=== PATIENT | female | born 1935 | race Caucasian/White ===

== ENCOUNTER 2017-08-17 11:42 | Emergency (ER) | payer MEDICARE, OTHER ==
[2017-08-17 12:38] LABS: eGFR (African) > 60; eGFR (Non-African) > 60
--- NOTE | 2017-08-17 12:55 | ED Physician Documentation ---
General Adult - HISTORIAN Historian: patient, spouse - HPI Stated Complaint: abd pain Chief Complaint: General Adult Onset: hours Timing: still present Severity: moderate Further Comments: yes (Pt is an 82 yo female with abd pain that started this am. Pt is concerned because she has hx Crohn's dz and hx bowel obstruction, which resolved w/o surgery. Pain occurred this am in upper abd, but now has migrated to lower abd and is not as intense as previously. Pt rates pain 5/10. No n/v. No fever. Pt has had appendectomy. Pt has not had a cholecystectomy. Pt was able to eat breakfast and had normal BM this am, she says.) - ROS CONST: no problems EYES/ENT: none CVS/RESP: none GI/: abdominal pain - PAST HX Past History: other (Crohns, HTN, HLD, bowel obstruction) Allergies/Adverse Reactions: Allergies Allergy/AdvReac Type Severity Reaction Status Date / Time No Known Allergies Allergy Verified 11/20/14 16:56 Home Medications: Ambulatory Orders Medication Instructions Recorded Aspirin 81 mg PO DAILY u2 07/07/12 Cranberry Xt/Multivitamin [Utymax 1 packet PO D 12/19/13 Powder Pack] Lovastatin 40 mg PO DAILY u2 10/01/14 Ondansetron HCl Rapdis [Zofran Odt] 4 mg PO Q8 PRN #15 tab 11/16/14 Azathioprine 50 mg PO QDAY 11/18/14 Aspirin [Gita] 81 mg PO DAILY 08/17/17 Cholecalciferol (Vitamin D3) 1,000 unit PO D 08/17/17 [Vitamin D3] Loratadine [Claritin] 10 mg PO D 08/17/17 Lovastatin [Altoprev] 40 mg PO HS 08/17/17 Mesalamine [Apriso] 0.375 gm PO TID 08/17/17 [place]-3/Dha/Epa/Fish Oil [[place] 3 2 each PO D 08/17/17 500 Softgel] Sotalol HCl [Sotalol] 80 mg PO BID 08/17/17 Ubidecarenone/Vit E Acet [Co Q-10 2 each PO D 08/17/17 100 mg Softgel] - SOCIAL HX Smoking History: other (unk) - FAMILY HX Family History: No - VITAL SIGNS Vital Signs: Vital Signs Temp Pulse Resp BP Pulse Ox 97.4 F L 64 16 165/79 97 08/17/17 11:45 08/17/17 11:45 08/17/17 11:45 08/17/17 11:45 08/17/17 11:45 - REVIEWED ASSESSMENTS Nursing Assessment Reviewed: Yes Vitals Reviewed: Yes Progress - Progress Progress: NS 500 cc IVF abd x-ray: Impression: Large bowel stool. No obstruction. Sx resolved after IVF, ? constipation. ED Results Lab/Radiology - Lab Results Lab Results: Lab Results 08/17/17 08/17/17 12:10 12:10 Sodium 135 mmol/L L mmol/L (136-145) Potassium 4.1 mmol/L mmol/L (3.5-5.1) Chloride 99 mmol/L mmol/L (98-107) Carbon Dioxide 28 mmol/L mmol/L (22-30) BUN 17 mg/dL mg/dL (7-17) Creatinine 0.90 mg/dL mg/dL (0.52-1.04) Estimated Creat Clear 61 Est GFR ( Amer) > 60 (60 - ) Est GFR (Non-Af Amer) > 60 (60 - ) Glucose 111 mg/dL H mg/dL (74-106) Calcium 9.6 mg/dL mg/dL (8.4-10.2) Total Bilirubin 0.2 mg/dL mg/dL (0.2-1.3) AST 26 U/L U/L (15-46) ALT 31 U/L U/L (13-69) Alkaline Phosphatase 70 U/L U/L (38-126) Total Protein 7.2 g/dL g/dL (6.3-8.2) Albumin 4.4 g/dL g/dL (3.5-5.0) Lipase 113 U/L U/L (23-300) - Orders Orders: ED Orders Category Date Time Status ABDOMEN 1VIEW [RAD] Stat Exams 08/17/17 Ordered CBC REF Routine Lab 08/17/17 12:10 Received CMP Routine Lab 08/17/17 12:10 Completed LIPASE Stat Lab 08/17/17 12:10 Completed UA [URINALYSIS] Routine Lab 08/17/17 Ordered General Adult Physical Exam - PHYSICAL EXAM GENERAL APPEARANCE: mild distress EENT: pharynx normal NECK: normal inspection, supple RESPIRATORY: no resp distress, chest non-tender, breath sounds normal CVS: reg rate & rhythm, heart sounds normal ABDOMEN: soft, tenderness (mild diffuse lower abd tenderness), decreased BS BACK: normal inspection, no CVA tenderness SKIN: warm/dry, normal color EXTREMITIES: non-tender, normal range of motion, no edema NEURO: oriented X3, motor nml, sensation nml Discharge Clincal Impression: transient abd pain Referrals: Primary Doctor,No [Primary Care Provider] - Condition: Good Disposition: 01 HOME, SELF-CARE Decision to Admit: NO Decision Time: 14:00
[2017-08-17] MEDS ORDERED: 0.9 % SODIUM CHLORIDE 1,000 ML IV ONE (12:56)
[2017-08-17 13:51] VITALS: BP 140/75
[2017-08-17 16:01] LABS: BASO % 0.8 % (0.0-1.5); EOS % 1.7 % (0.0-6.8); LYMPH ABS # 1.71 thou/uL (0.60-4.00); MCH. 30.5 pg (28.0-34.0); MCV 92.3 fL (80.0-100.0); MONOCYTE % 5.3 % (0.0-11.0); MONOCYTE ABS # 0.31 thou/uL (0.00-0.90); PLATELET COUNT 228 thou/uL (130-400)
--- NOTE | 2017-08-18 11:05 | Diagnostic Imaging Report ---
JULIA FALCON [facility] [id number] [facility] [address] [place] [id number] Report Submission Date: August 17, 2017 12:36:13 PM CDT Patient Study Name: VONDA QUINTERO Date: August 17, 2017 12:11:59 PM CDT Modality Type: DX Gender: F Description: ABDOMEN : 35 Institution: [facility] Physician: JULIA FALCON Examination: Abdomen History: KUB, MID ABD PAIN TODAY, HX OF OBSTRUCTION AND CROHNS DISEASE (Hx) Findings: 2 views obtained of the abdomen. No abnormal dilation of the large or small bowel. Air and stool throughout the large bowel. No suspicious calcification projecting over the renal fossa or the lower pelvic region. Lumbar curvature to the left. Impression: Large bowel stool. No obstruction. No suspicious calcifications by plain film sensitivity. Electronically signed on August 17, 2017 12:36:13 PM CDT by: Neeraj HEATH
== END 2017-08-17 13:50 | disposition home or self-care (01) ==
LOC: ED 11:42
DX: R10.9 Unspecified abdominal pain (principal)
CPT/HCPCS: 74018; 80053; 83690; 85025; J7030; 96360; 99284; S1016

== ENCOUNTER 2017-09-13 13:33 | Outpatient (CLI) | payer MEDICARE, OTHER | END 2017-09-13 13:34 | LOC: CARD 13:33 | PROVIDERS: ATTEND Internal Medicine Cardiovascular Disease | DX: Z95.0 Presence of cardiac pacemaker (principal); E78.5 Hyperlipidemia, unspecified; I10 Essential (primary) hypertension; Z86.79 Personal history of other diseases of the circulatory system | CPT/HCPCS: G0463 ==